=== PATIENT | female | born 1955 | race Caucasian/White ===

== ENCOUNTER → 2023-12-02 14:09 | Outpatient (REF) | payer OTHER, SELFPAY | LOC: HWRAD 14:09 | PROVIDERS: ATTENDING PHYSICIAN Nurse Practitioner Family | DX: M25.552 Pain in left hip (principal) | CPT/HCPCS: 73502 ==

== ENCOUNTER → 2024-01-06 12:42 | Outpatient (REF) | payer OTHER, SELFPAY | LOC: RCS 12:42 | PROVIDERS: ATTENDING PHYSICIAN Physician Assistant | DX: Z01.818 Encounter for other preprocedural examination (principal) | CPT/HCPCS: 93005 ==

== ENCOUNTER → 2024-10-15 08:11 | Outpatient (REF) | payer OTHER, SELFPAY | LOC: HWWDC 08:11 | PROVIDERS: ATTENDING PHYSICIAN Family Medicine | DX: Z12.31 Encounter for screening mammogram for malignant neoplasm of breast (principal) | CPT/HCPCS: 77063; 77067 ==

== ENCOUNTER 2024-11-18 13:03 | Outpatient (RCR) | payer OTHER, SELFPAY | END 2024-11-18 23:59 | disposition home or self-care (01) | LOC: RPT 13:03 | PROVIDERS: ATTENDING PHYSICIAN Family Medicine | DX: M54.32 Sciatica, left side (principal); Z73.6 Limitation of activities due to disability | CPT/HCPCS: 97110; 97112; 97140; 97161; 97530 ==